=== PATIENT | male | born 1965 | race African-American/Black ===

== ENCOUNTER → 2016-12-03 | Outpatient (CLI) | payer OTHER ==
--- NOTE | 2016-12-03 15:59 | RADIOLOGY REPORT (SQ) ---
EXAM DESCRIPTION: CT RT LOWER EXTREMITY WITHOUT COMPLETED DATE/TIME: 12/03/2016 1:02 pm REASON FOR STUDY: TROCHANTERIC BURSITIS, RIGHT HIP M70.61 TROCHANTERIC BURSITIS, RIGHT HIP COMPARISON: None. TECHNIQUE: CT scan of the right hip performed without intravenous or oral contrast. Images reviewed with soft tissue and bone windows. Reconstructed coronal and sagittal MPR images reviewed. All andrade ges stored on PACS. 3D shaded surface display imaging was generated on an independent workstation All CT scanners at this facility use dose modulation, iterative reconstruction, and/or weight based d osing when appropriate to reduce radiation dose to as low as reasonably achievable (ALARA). [facility]: Dose Right [facility]: CareDose [facility]: Dose Right [facility]: Teradose 4D [facility]: [employer] RADIATION DOSE: 23 mGy. LIMITATIONS: None. FINDINGS: PELVIC BONES: No acute fracture. No worrisome bone lesions. VISUALIZED SPINE: No acute findings. RIGHT HIP: No acute fracture or dislocation. Minimal right acetabular rim bony spurring. Right prox imal femur greater trochanter intact. No gross soft tissue findings worrisome for right-sided trocha nteric bursitis. LEFT HIP: No acute fracture or dislocation. Minimal right acetabular rim bony spurring. PELVIC SOFT TISSUES: Fat filled bilateral inguinal hernias. EXTRAPELVIC SOFT TISSUES: No significant findings. OTHER: No other significant finding. IMPRESSION: No acute fracture. Minimal right acetabular rim bony spurring. Right proximal femur gr eater trochanter intact. TECHNICAL DOCUMENTATION: JOB ID: [id number] Quality ID # [id number]: Final reports with documentation of one or more dose reduction techniques (e.g., Au tomated exposure control, adjustment of the mA and/or kV according to patient size, use of iterative reconstruction technique) 2010 [employer]- All Rights Reserved
== END ==
LOC: RAD 12:45
PROVIDERS: ATTEND Orthopaedic Surgery
DX: M70.61 Trochanteric bursitis, right hip (principal)